=== PATIENT | male | born 1975 | race Caucasian/White ===

== ENCOUNTER 2019-02-02 09:19 | Emergency (ER) | payer OTHER ==
[~2019-02-02] VITALS: Ht 170.2 cm; Wt 136.1 kg
--- NOTE | 2019-02-02 09:38 | NUR ---
ARRIVAL PATIENT ARRIVED TO ED4 VIA W/C, C/O OF BACK PAIN SINCE LAST NIGHT, PATIENT STATES HE WAS WALKING DOWN THE STAIRS AT THE HOTEL WHEN HE FELL DOWN THE LAST 4-5 STEPS, WAS ABLE TO GET HIMSELF UP, BUT THIS MORNING PAIN WITH MOVEMENT WAS WORSE, CAME TO THE ED FOR FURTHER EVAL.
[2019-02-02] MEDS ORDERED: NORCO 7.5MG PO ONE (09:40)
[2019-02-02 09:41] VITALS: BP 159/102
--- NOTE | 2019-02-02 09:44 | ER.PDOC ---
General Chief Complaint: Requesting Medical Care Stated Complaint: FALL, BACK PAIN Time seen by MD: 09:37 Source: patient Exam Limitations: no limitations History of Present Illness Initial Comments Pt sustained a fall down 5 stairs last PM around 1999. Able to get up and return to hotel room. Noted mid-back pain and R chest pain at that time. Took a shower and went to bed. This AM, awoke around 0530, states chest pain improved but back pain worse. Pain with movement, no neurological symptoms noted. Occurred: yesterday Where: home Severity: moderate Injuries/Pain Location: chest, back Context: Other (tripped going down stairs, slid down 5 steps.) Loss of Consciousness: No Loss of Consciousness Modifying Factors: improves with movement Associated Symptoms: chest pain, muscle spasms Allergies: Coded Allergies: No Known Allergies (Unverified , 02/02/19) MEDS Unable to Obtain Active Prescriptions or Reported Meds Past Medical History Medical History: diabetes, hypertension, thyroid disease Surgical History: appendectomy Family History Significant Family History: no pertinent family hx Review of Systems Constitutional: no symptoms reported Eyes: no symptoms reported Respiratory: no symptoms reported Cardiovascular: no symptoms reported Gastrointestinal: no symptoms reported Genitourinary: no symptoms reported Musculoskeletal: back pain, other (R chest pain) Skin: no symptoms reported Psychiatric/Neurological: no symptoms reported All Other Systems: Reviewed and Negative Physical Exam General Appearance: Moderate Distress Head: No Evidence of Injury Eyes: bilateral eye normal inspection Ears, Nose, Mouth, Throat: Hearing Grossly Normal, No Evidence of ENT Injury, No Dental Injury Neck: Non-Tender, Normal Alignment, Nexus criteria neg, Normal Inspection Cardiovascular/Respiratory: Regular Rate, Rhythm, No M/R/G, Normal Peripheral Pulses, No JVD, Normal Breath Sounds, No Respiratory Distress, Rib Tenderness ( R ant/lat 4,5 ribs) Gastrointestinal: Normal Bowel Sounds, No Organomegaly, No Pulsatile Mass, Non Tender, Soft Back: No CVA Tenderness, No Vertebral Tenderness, Muscle Spasm, Other (R paraspinous tenderness T4-L4) Extremities: No Evidence of Injury, Normal Range of Motion, Non-Tender, No Pedal Edema 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, No Motor/Sensory Deficits, Alert, Normal Mood/Affect, Oriented x 3 Skin: Normal Color, Warm/Dry [place] Coma Score Best Eye Response: (4) Open Spontaneously Best Verbal Response: (5) Oriented Best Motor Response: (6) Obeys Commands Results/Orders Results/Orders Orders - RICHARD PARIKH MD Hydrocodone/Acetaminophen ([place] 7.5mg) (02/02/19 09:40) Hydrocodone/Acetaminophen ([place] 7.5mg) (02/02/19 10:00) Xr Lspine 2-3v (02/02/19 09:57) Xr Chest 2v (02/02/19 09:57) Vital Signs Date Time Temp Pulse Resp B/P (MAP) Pulse Ox O2 Delivery O2 Flow Rate FiO2 02/02/19 09:41 97.6 111 20 159/102 (121) 93 Room Air 97.6 02/02/19 09:38 97.6 111 20 93 Room Air 97.6 02/02/19 09:37 97.6 111 20 97.6 EKG/XRAY/CT/US XRAY: XRAY Comments: Nl chest. Spondolisthesis and multilevel disc disease L spine Departure Time of Disposition: 10:39 Disposition: 01 HOME, SELF-CARE Impression: Primary Impression: Lumbar strain Additional Impression: Chest wall pain Condition: Stable Referrals: PCP,UNKNOWN (PCP) PRIMARY CARE PROVIDER Scripts Unable to Obtain Active Prescriptions or Reported Meds Comments RX norco, flexeril. No driving while taking meds. F/U PCP Duration or Time Spent with Pa: 25 Problem Qualifiers Primary Impression: Lumbar strain Encounter type: initial encounter Qualified Codes: S39.012A - Strain of muscle, fascia and tendon of lower back, initial encounter RICHARD PARIKH MD Feb 02, 2019 09:44
[2019-02-02] MEDS ORDERED: NORCO 7.5MG PO PRN (10:00)
--- NOTE | 2019-02-02 10:08 | NUR ---
XRAY PATIENT TO XRAY WITH NIDHI FROM RADIOLOGY.
--- NOTE | 2019-02-02 10:21 | NUR ---
XRAY PATIENT BACK FROM XRAY.
--- NOTE | 2019-02-02 10:27 | DIREP ---
PROCEDURE:CHEST 2 VIEWS COMPARISON:None. INDICATIONS:s/p fall with R chest pain FINDINGS: LUNGS/PLEURA:No significant pulmonary parenchymal abnormalities. No effusions. VASCULATURE:Normal. Unremarkable pulmonary vasculature. CARDIAC:Normal. No cardiac silhouette abnormality or cardiomegaly. MEDIASTINUM:Normal. No visible mass or adenopathy. BONES:Normal. No fracture or visible bony lesion. OTHER:Negative. CONCLUSION:No active cardiopulmonary process demonstrated. Dictated by: Koffi Cho M.D. on 02/02/2019 at 10:23 AM
--- NOTE | 2019-02-02 10:30 | DIREP ---
PROCEDURE:XRAY SPINE LUMBAR 2-3 VWS COMPARISON:None. INDICATIONS:s/p fall with R chest, back pain TECHNIQUE:AP, lateral, and coned down lateral views of the lumbar spine are provided. FINDINGS: ALIGNMENT:4 mm retrolisthesis of L2 on L3 and L3 on L4. 5 mm retrolisthesis of L1 on L2 VERTEBRAE:Mild endplate degenerative changes with ventral disc osteophytes. Lower lumbar facet arthropathy. DISK SPACES:Mild multilevel disc space narrowing SPONDYLOLISTHESIS:As above SACROILIAC JOINTS:Normal. OTHER:Normal. CONCLUSION: 1. Mild to moderate multilevel lumbar spondylosis. 2. Multilevel listhesis likely degenerative. Dictated by: Koffi Cho M.D. on 02/02/2019 at 10:26 AM
[2019-02-02 11:04] VITALS: BP 158/81
[2019-02-02 11:05] VITALS: BP 158/81
== END 2019-02-02 11:06 | disposition home or self-care (01) ==
LOC: ER 09:19
DX: S39.012A Strain of muscle, fascia and tendon of lower back, initial encounter (principal); R07.89 Other chest pain; E07.9 Disorder of thyroid, unspecified; E11.9 Type 2 diabetes mellitus without complications; I10 Essential (primary) hypertension; Z90.49 Acquired absence of other specified parts of digestive tract; Y93.89 Activity, other specified; W10.9XXA Fall (on) (from) unspecified stairs and steps, initial encounter; Y92.098 Other place in other non-institutional residence as the place of occurrence of the external cause; Y99.8 Other external cause status
CPT/HCPCS: 71046; 72100; 99283